=== PATIENT | female | born 1960 | race Caucasian/White ===

== ENCOUNTER 2023-03-10 06:17 | Day surgery (SDC) | payer MEDICARE, SELFPAY ==
[2023-03-10] MEDS: TETRACAINE 0.5% OPHTH 1 DROP EYE-RIGHT ×2 (06:55→07:00)
[2023-03-10 06:56] VITALS: BP 136/78; PULSE 49; RESP 16; TEMP 37; O2SAT 97
[2023-03-10 06:58] VITALS: BMI 27.1
[2023-03-10] MEDS: KETOROLAC OPHTH 0.5% 1 DROP EYE-RIGHT ×3 (07:00→07:15)
--- NOTE | 2023-03-10 07:07 | SUR.PREOP ---
The eye drops brought by the patient (Ketorolac and Prednisolone) are examined and I have determined they are labeled by the patient's pharmacy for this patient as prescribed by the surgeon. The bottles are intact, recently obtained and appear to be correct.
[2023-03-10] MEDS: SODIUM CHLORIDE 0.9 % (FLUSH) 10 ML SYRINGE IVF (07:10)
[2023-03-10] MEDS: TETRACAINE 0.5% OPHTH 2 DROP EYE-RIGHT (07:56)
[2023-03-10] MEDS: BALANCED SALT IRRIG SOLN 15 ML EYE-RIGHT (08:00)
--- NOTE | 2023-03-10 08:00 | W.ANESCHARGE ---
Anesthesia Charges Start Date/Time Anesthesia Start Date: 03/10/23 Anesthesia Start Time: 07:52 Stop Date/Time Anesthesia Stop Date: 03/10/23 Anesthesia Stop Time: 08:27
[2023-03-10 08:23] VITALS: BP 137/75; PULSE 49; RESP 16; TEMP 36.5; O2SAT 95
--- NOTE | 2023-03-10 09:22 | W.ANESCHARGE ---
Anesthesia Charges Start Date/Time Anesthesia Start Date: 03/10/23 Anesthesia Start Time: 07:52 Stop Date/Time Anesthesia Stop Date: 03/10/23 Anesthesia Stop Time: 08:27
--- NOTE | 2023-03-10 10:15 | P.OPTPRC_ITS ---
Procedure Note Date of procedure: 03/10/23 Will [facility] bill your pro fee for this procedure?: Yes Procedure Description: SURGEON: Joan Case MD PREOPERATIVE DIAGNOSIS: Nuclear sclerotic cataract, right eye. POSTOPERATIVE DIAGNOSIS: Nuclear sclerotic cataract, right eye. NAME OF OPERATION: Phacoemulsification of cataract with posterior chamber intraocular lens implantation in the right eye. ANESTHESIA: Topical. ESTIMATED BLOOD LOSS: Less than 2 cc. COMPLICATIONS: None. PATHOLOGY SPECIMEN: None. INDICATIONS: See consult note for details. The risks, benefits and alternatives of the procedure were explained to the patient, who elected to proceed and signed informed consent to do so. PROCEDURE: The patient was brought to the pre-holding area where the right eye was identified as the operative eye. I placed my initials above this eye. The patient received eye drops consisting of 0.5% tetracaine, 1% tropicamide, 10% phenylephrine, and 0.5% ketorolac. The patient was then brought to the operating room where the right eye was again identified as the operative eye. The eye was prepped with Betadine and draped in the usual sterile ophthalmic fashion. A #15 super-sharp blade was used to create a paracentesis site. 1% non-preserved intracameral lidocaine was injected into the anterior chamber. Endocoat was injected into the anterior chamber. A 2.4 mm keratome was used to create a three-plane self-sealing incision 1 mm anterior to the temporal limbus. A cystotome was used to create an anterior capsular leaflet. The Utrata forceps were used to extend this to form a continuous curvilinear capsulorrhexis. Hydrodissection was performed. The cataract was removed with phacoemulsification using the ofvtvk-[id number]-nbrriye technique. The irrigation and aspiration tip was used to remove the remaining cortex. Healon was injected into the capsular bag. An NEIL ZCB00 intraocular lens of 21.0 diopters was injected into the capsular bag. The irrigation and aspiration tip was used to remove the remaining viscoelastic. Balanced salt solution on a cannula was used to hydrate the wound, and the wound was found to be watertight. The pupil was noted to be round. DISPOSITION: The patient was taken to the recovery room and discharged to home in stable condition. The patient was instructed to call me or go to the emergency department with any sudden change, including dramatic loss of vision, severe pain in the eye or eyebrow region, nausea, or vomiting. The patient will follow up in the clinic tomorrow morning.
== END 2023-03-10 08:55 | disposition home or self-care (01) ==
LOC: OR 06:20
PROVIDERS: PCP Physician Assistant; Visit Provider Ophthalmology
PROC: (CPT 66984; principal; 2023-03-10 06:45)
DX: H25.11 Age-related nuclear cataract, right eye (principal)
CPT/HCPCS: 66984; 00142; A9270; J2250; J3010; V2632

== ENCOUNTER 2023-03-24 06:15 | Day surgery (SDC) | payer MEDICARE, SELFPAY ==
[2023-03-24] MEDS: TETRACAINE 0.5% OPHTH 1 DROP EYE-LEFT ×2 (06:59→07:04)
[2023-03-24] MEDS: KETOROLAC OPHTH 0.5% 1 DROP EYE-LEFT ×3 (07:02→07:34)
[2023-03-24] MEDS: SODIUM CHLORIDE 0.9 % (FLUSH) 10 ML SYRINGE IVF (07:30)
--- NOTE | 2023-03-24 07:30 | SUR.PREOP ---
Patient found to have irregular heart beat while taking vital signs. Patient placed on clinical research monitor. Patient denies abnormal rhythm, chest pain, or palpitations. Dr. Mathews with anesthesia notified. EKG VORB. Dr. Mathews in to see patient. EKG reviewed by Dr. Mathews and lin to proceed with procedure. Dr. Case notified.
[2023-03-24 07:42] VITALS: BMI 27.1
[2023-03-24 07:47] VITALS: BP 118/72; PULSE 47; RESP 16; TEMP 36.2; O2SAT 96
[2023-03-24] MEDS: TETRACAINE 0.5% OPHTH 2 DROP EYE-LEFT (07:53)
[2023-03-24] MEDS: BALANCED SALT IRRIG SOLN 15 ML EYE-LEFT (07:57)
--- NOTE | 2023-03-24 08:02 | W.ANESCHARGE ---
Anesthesia Charges Start Date/Time Anesthesia Start Date: 03/24/23 Anesthesia Start Time: 07:50 Stop Date/Time Anesthesia Stop Date: 03/24/23 Anesthesia Stop Time: 09:21
[2023-03-24 08:21] VITALS: BP 120/91; PULSE 60; RESP 16; TEMP 36.1; O2SAT 93
--- NOTE | 2023-03-24 08:23 | W.ANESCHARGE ---
Anesthesia Charges Start Date/Time Anesthesia Start Date: 03/24/23 Anesthesia Start Time: 07:50 Stop Date/Time Anesthesia Stop Date: 03/24/23 Anesthesia Stop Time: 08:21
--- NOTE | 2023-03-24 09:00 | W.PM.OPTPROC ---
Procedure Note Date of procedure: 03/24/23 Will [facility] bill your pro fee for this procedure?: Yes Procedure Description: SURGEON: Joan Case MD PREOPERATIVE DIAGNOSIS: Nuclear sclerotic cataract, left eye. POSTOPERATIVE DIAGNOSIS: Nuclear sclerotic cataract, left eye. NAME OF OPERATION: Phacoemulsification of cataract with posterior chamber intraocular lens implantation in the left eye. ANESTHESIA: Topical. ESTIMATED BLOOD LOSS: Less than 2 cc. COMPLICATIONS: None. PATHOLOGY SPECIMEN: None. INDICATIONS: See consult note for details. The risks, benefits and alternatives of the procedure were explained to the patient, who elected to proceed and signed informed consent to do so. PROCEDURE: The patient was brought to the pre-holding area where the left eye was identified as the operative eye. I placed my initials above this eye. The patient received eye drops consisting of 0.5% tetracaine, 1% tropicamide, 10% phenylephrine, and 0.5% ketorolac. The patient was then brought to the operating room where the left eye was again identified as the operative eye. The eye was prepped with Betadine and draped in the usual sterile ophthalmic fashion. A #15 super-sharp blade was used to create a paracentesis site. 1% non-preserved intracameral lidocaine was injected into the anterior chamber. Endocoat was injected into the anterior chamber. A 2.4 mm keratome was used to create a three-plane self-sealing incision 1 mm anterior to the temporal limbus. A cystotome was used to create an anterior capsular leaflet. The Utrata forceps were used to extend this to form a continuous curvilinear capsulorrhexis. Hydrodissection was performed. The cataract was removed with phacoemulsification using the umxojj-qwr-zwhduis technique. The irrigation and aspiration tip was used to remove the remaining cortex. Healon was injected into the capsular bag. An NEIL ZCB00 intraocular lens of 22.0 diopters was injected into the capsular bag. The irrigation and aspiration tip was used to remove the remaining viscoelastic. Balanced salt solution on a cannula was used to hydrate the wound, and the wound was found to be watertight. The pupil was noted to be round. DISPOSITION: The patient was taken to the recovery room and discharged to home in stable condition. The patient was instructed to call me or go to the emergency department with any sudden change, including dramatic loss of vision, severe pain in the eye or eyebrow region, nausea, or vomiting. The patient will follow up in the clinic tomorrow morning.
--- NOTE | 2023-03-24 10:54 | W.ANESCHARGE ---
Anesthesia Charges Start Date/Time Anesthesia Start Date: 03/24/23 Anesthesia Start Time: 07:50 Stop Date/Time Anesthesia Stop Date: 03/24/23 Anesthesia Stop Time: 08:21
== END 2023-03-24 08:46 | disposition home or self-care (01) ==
PROVIDERS: PCP Physician Assistant; Visit Provider Ophthalmology
PROC: (CPT 66984; principal; 2023-03-24 06:45)
DX: H25.12 Age-related nuclear cataract, left eye (principal)
CPT/HCPCS: 66984; 00142; 82962; A9270; J2250; J3010; V2632

== ENCOUNTER 2023-10-14 07:46 | Outpatient (CLI) | payer MEDICARE, SELFPAY | END 2023-10-14 07:47 | disposition home or self-care (01) | LOC: AMB 10-17 09:28 | PROVIDERS: PCP Physician Assistant; Visit Provider Family Medicine | DX: R41.82 Altered mental status, unspecified (principal); R42 Dizziness and giddiness | CPT/HCPCS: A0425; A0427 ==

== ENCOUNTER 2023-10-14 08:13 | Emergency (ER) | payer MEDICARE, SELFPAY ==
[2023-10-14] VITALS (9 sets, daily range): BP systolic 103–151; BP diastolic 58–91; PULSE 44–57; RESP 12–18; TEMP 36.4; O2SAT 93–98; BMI 28.2
--- NOTE | 2023-10-14 08:36 | ED_ITS ---
HPI - Dizziness General Date Seen: 10/14/23 Chief Complaint: Dizziness/Vertigo Stated Complaint: Dizziness Time Seen by Provider: 10/14/23 08:16 Source: patient and EMS Mode of arrival: EMS Limitations: no limitations History of Present Illness HPI Narrative: Patient is a 62-year-old female with a history of hypertension presenting to the emergency department for had episode of dizziness. She states she was on her normal plus wrote when she suddenly became very dizzy. She states the felt like she was moving on about. Is causing her to drop her eyes coughing and she called out to the business continuity specialist who then called EMS. When EMS arrived they gave her some nausea medicine she states she was starting to feel better after that. States he still some mild dizziness but not nearly as bad. Does notice it worsens with head movement. Never has had symptoms like this before. Denies lightheadedness, weakness, numbness, chest pain, shortness of breath, abdominal pain, headache, vision changes, diarrhea, constipation. States the symptoms came on suddenly. Related Data Home Medications ?Medication ?Instructions ?Recorded ?Confirmed atenolol 100 mg tablet 100 mg PO DAILY 03/08/23 10/14/23 buspirone 10 mg tablet 10 mg PO BID 03/08/23 03/24/23 fluoxetine 10 mg capsule 10 mg PO QAM 03/08/23 03/24/23 glipizide 10 mg tablet 10 mg PO DAILY 03/08/23 03/24/23 Allergies Allergy/AdvReac Type Severity Reaction Status Date / Time No Known Drug Allergies Allergy Verified 03/10/23 06:38 Review of Systems Status of ROS: Reports: 10 or more systems reviewed and unremarkable except as noted in History and below [facility] Medical History Attention deficit disorder without mention of hyperactivity ?F98.8 - Other specified behavioral and emotional disorders with onset usually occurring in childhood and adolescence (ICD-10) LOLIS (obstructive sleep apnea) ?G47.33 - Obstructive sleep apnea (adult) (pediatric) (ICD-10) Type 2 diabetes mellitus without complication, with long-term current use of insulin ?E11.9 - Type 2 diabetes mellitus without complications (ICD-10) ?Z79.4 - extermination supervisor (current) use of insulin (ICD-10) Anxiety ?F41.9 - Anxiety disorder, unspecified (ICD-10) Unspecified essential hypertension ?I10 - Essential (primary) hypertension (ICD-10) Social History Smoking Status: Never smoker How often do you have a drink containing alcohol: never AUDIT-C Alcohol total score: 0 Non-prescribed substance use: denies use Caffeine: Yes Exam Narrative: Exam Narrative: Const: Well-nourished, Well-developed, in mild distress Eyes: PERRL, no conjunctival injection, and symmetrical lids HENT: Atraumatic external nose and ears. Moist mucous membranes. Neck: Symmetric, trachea midline, No thyromegaly. CVS: RRR, No murmurs or gallops. Peripheral pulses 2+ and equal in all extremities RESP: Unlabored respiratory effort. Clear to auscultation bilaterally. GI: Nontender/Nondistended, No rebound or guarding. MSK:Extremities w/o deformity, Normal Active ROM Skin: Warm, Dry. No rashes or lesions. Neuro: Normal Muscle tone, Cranial nerves 2-12 grossly intact, normal [id number], normal [id number], normal gait, normal strength 5/5 upper lower extremities bilaterally, normal sensation upper and lower extremities bilaterally, normal rapid alternating movements. Head impulse test limited due to causing worsening dizziness and patient not tolerating it, no nystagmus seen, normal test of skew Psych: Awake, Alert, & Oriented x3. Appropriate mood and affect. Const: Vital Signs, click to edit/add: Vital Signs - 24 hr 10/14/23 08:19 10/14/23 08:31 10/14/23 09:01 Temperature 97.6 F Pulse Rate 54 L 49 L Pulse Rate [Left P ulse Oximeter] 57 L Respiratory Rate 18 14 16 Blood Pressure 140/91 H 117/69 Blood Pressure [Le ft Upper Arm] 151/89 H Pulse Oximetry 93 94 94 Oxygen Delivery Me thod Room Air 10/14/23 09:31 10/14/23 10:00 10/14/23 10:30 Temperature Pulse Rate 44 L 56 L 44 L Pulse Rate [Left P ulse Oximeter] Respiratory Rate 12 14 16 Blood Pressure 103/58 L 123/64 Blood Pressure [Le ft Upper Arm] Pulse Oximetry 96 98 98 Oxygen Delivery Me thod 10/14/23 11:02 10/14/23 11:34 Temperature Pulse Rate 46 L 51 L Pulse Rate [Left P ulse Oximeter] Respiratory Rate 16 12 Blood Pressure 133/72 132/75 Blood Pressure [Le ft Upper Arm] Pulse Oximetry 95 95 Oxygen Delivery Me thod Course Vital Signs Vital signs: Initial Vital Signs Temperature 97.6 F 10/14/23 08:19 Temperature Source Temporal Artery Scan 10/14/23 08:19 Pulse Rate 57 L 10/14/23 08:19 Pulse Rhythm Regular 10/14/23 08:19 Pulse Strength 3+ Normal 10/14/23 08:19 Respiratory Rate 18 10/14/23 08:19 Blood Pressure 151/89 H 10/14/23 08:19 Blood Pressure Mean 109 H 10/14/23 08:19 Blood Pressure Position Sitting 10/14/23 08:19 Pulse Oximetry 93 10/14/23 08:19 Oxygen Delivery Method Room Air 10/14/23 08:19 Vital Signs Temperature 97.6 F 10/14/23 08:19 Pulse Rate 57 L 10/14/23 08:19 Respiratory Rate 18 10/14/23 08:19 Blood Pressure 151/89 H 10/14/23 08:19 Pulse Oximetry 93 10/14/23 08:19 Oxygen Delivery Method Room Air 10/14/23 08:19 Temperature 97.6 F 10/14/23 08:19 Pulse Rate 51 L 10/14/23 11:34 Respiratory Rate 12 10/14/23 11:34 Blood Pressure 132/75 10/14/23 11:34 Pulse Oximetry 95 10/14/23 11:34 Oxygen Delivery Method Room Air 10/14/23 08:19 Medications Administered Medications: Discontinued Medications Generic Name Dose Route Start Last Admin Trade Name Freq PRN Reason Stop Dose Admin Lactated Ringer's 1,000 mls @ 1,000 mls/hr 10/14/23 08:30 10/14/23 10:00 Lactated Ringers 1000 Ml IV 10/14/23 09:29 Infused .Q1H ONE Infusion Meclizine HCl 25 mg 10/14/23 08:30 10/14/23 08:47 Meclizine Hcl 25 Mg Tablet PO 10/14/23 08:31 25 mg ONCE ONE Administration MDM - Dizziness MDM Narrative Medical decision making narrative: Patient is a 62-year-old female presenting to the emergency department for dizziness. Dizziness has improved significantly she states but is not completely gone. She does have worsening dizziness with head movement and the h and exam is reassuring. This makes me believe this is a peripheral issue rather than a central problem causing the dizziness. Do not believe imaging is necessary at this time. While she was having some difficulty explained the could be 0 slight syncopal episode related to this so an EKG and troponin were ordered. Also ordered a CBC, CMP, magnesium to look for signs of electrolyte abnormalities. She states she is feeling dehydrated so a L of lactated Ringer's was given and she is also given a dose of meclizine. Patient's lab work returned showing no concerning abnormalities. She is feeling much better after the meclizine and initial Zofran given by EMS. Her IV quit working and she was unable to finish her IV fluid it is. She only got a few 100 mL and it looks like. She did not want to be restocking and this seems reasonable as she is feeling better. Point of care troponin was elevated 0.05 considering this can be sometimes inaccurate we did do a lab troponin that was within normal limits. Repeat troponin was also done showing no changes. EKG shows no concerning abnormalities. Considering symptoms worsen with head movement and she the reassuring hints exam this is most likely peripheral cause of vertigo. Imaging is not necessary. I offered her to go home with vertigo were Zofran and she declined. Patient will be discharged at this time. Lab Data Labs: Lab Results 10/14/23 10/14/23 10/14/23 Range/Units 08:43 09:03 11:10 WBC 6.24 (4.50-11.00) K/uL RBC 5.21 H (4.00-5.20) m/uL Hgb 15.5 (12.0-16.0) gm/dL Hct 46.2 (33.0-51.0) % MCV 89 (80-100) fL MCH 30 (26-34) pg MCHC 34 (32-36) gm/dL RDW Coeff of [place] 11.4 L (11.5-15.5) % Plt Count 221 (140-440) K/uL Neut % (Auto) 52.7 (42.0-72.0) % Lymph % (Auto) 36.2 (20-44) % [place] % (Auto) 7.4 (0.0-11.0) % Eos % (Auto) 2.4 (0.0-7.0) % Baso % (Auto) 0.8 (0.0-3.0) % Neut # (Auto) 3.29 (1.7-7.0) K/uL Lymph # (Auto) 2.26 (0.90-2.90) K/uL [place] # (Auto) 0.50 (0.00-0.90) K/UL Eos # (Auto) 0.15 (0.00-0.50) K/uL Baso # (Auto) 0.05 (0.00-0.30) K/uL Abs Immat Gran (auto) 0.03 (0.00-0.30) K/uL Imm/Tot Granulo (auto) 0.5 % Sodium 138 (135-149) mmol/L Potassium 4.1 (3.6-5.1) mmol/L Chloride 101 (96-114) mmol/L Carbon Dioxide 31 (20-32) mmol/L Anion Gap 6 L (7-15) mEq/L BUN 20 (7-30) mg/dL Creatinine 0.7 (0.5-1.5) mg/dL Estimated Creat Clear 54.61 Estimated GFR 98 ml/min Glucose 220 H (60-115) mg/dL Calcium 9.0 (8.4-10.6) mg/dL Magnesium 2.2 (1.5-2.6) mg/dL Total Bilirubin 1.2 (0.1-1.5) mg/dL AST 30 (12-35) U/L ALT 27 (4-35) U/L Alkaline Phosphatase 75 (40-150) U/L Troponin I 0.02 0.02 (0.01-0.04) ng/mL Total Protein 7.8 (6.0-8.3) g/dL Albumin 4.6 (3.3-5.0) g/dL Lab Acknowledgement Test Added POC Troponin I 0.05 H (0.01-0.04) ng/ml ECG Data Attestation: I personally reviewed and interpreted this ECG as follows: Prior ECG tracings: available for review Interpretation: Sinus bradycardia rate 53 beats per minute, left axis deviation, no ST or T-wave abnormalities. Slightly widened QRS. Overall looks similar to previous EKG on file Discharge Plan Discharge Clinical Impression: Benign paroxysmal positional vertigo Patient Disposition: Home, Self-Care Condition: Improved Instructions: Benign Paroxysmal Positional Vertigo (DC) Additional Instructions: Follow-up with primary care provider the dizziness persists. Return to emergency department for new or worsening symptoms. Prescriptions: No Action atenolol 100 mg tablet 100 mg PO DAILY buspirone 10 mg tablet 10 mg PO BID fluoxetine 10 mg capsule 10 mg PO QAM glipizide 10 mg tablet 10 mg PO DAILY Follow Up/Referrals: Marilu Maher PA-C [Primary Care Provider] - Stand Alone Forms: [employer] Info Instructions
[2023-10-14] MEDS: LACTATED RINGERS 1000 ML 1,000 ML IV (08:47)
[2023-10-14] MEDS: MECLIZINE HCL 25 MG TABLET PO (08:47)
[2023-10-14 08:52] LABS: Basophils Absolute Auto 0.05 K/uL (0.00-0.30); Basophils Percent Auto 0.8 % (0.0-3.0); Eosinophils Absolute Auto 0.15 K/uL (0.00-0.50); Eosinophils Percent Auto 2.4 % (0.0-7.0); Hematocrit 46.2 % (33.0-51.0); Hemoglobin* 15.5 gm/dL (12.0-16.0); Immature Granulocytes Abs Auto 0.03 K/uL (0.00-0.30); Immature Granulocytes Pct Auto 0.5 %; Lymphocytes Absolute Auto 2.26 K/uL (0.90-2.90); Lymphocytes Percent Auto 36.2 % (20-44); Mean Corpuscular HGB Conc 34 gm/dL (32-36); Mean Corpuscular Hemoglobin 30 pg (26-34); Mean Corpuscular Volume 89 fL (80-100); Monocytes Percent Auto 7.4 % (0.0-11.0); Neutrophils Absolute Auto 3.29 K/uL (1.7-7.0); Neutrophils Percent Auto 52.7 % (42.0-72.0); Platelet Count* 221 K/uL (140-440); RDW Coefficient of Variation % 11.4 % (11.5-15.5); Red Blood Count 5.21 m/uL (4.00-5.20); White Blood Count* 6.24 K/uL (4.50-11.00)
[2023-10-14 08:53] LABS: Slide Review Reflex No
[2023-10-14 08:59] LABS: Troponin, Point-of-Care* 0.05 ng/ml (0.01-0.04)
[2023-10-14 09:09] LABS: Albumin* 4.6 g/dL (3.3-5.0); Chloride* 101 mmol/L (96-114)
[2023-10-14 09:10] LABS: Potassium* 4.1 mmol/L (3.6-5.1); Sodium* 138 mmol/L (135-149)
[2023-10-14 09:12] LABS: Anion Gap 6 mEq/L (7-15); Aspartate Amino Transferase* 30 U/L (12-35); Bilirubin Total* 1.2 mg/dL (0.1-1.5); Carbon Dioxide* 31 mmol/L (20-32); Creatinine* 0.7 mg/dL (0.5-1.5); Est. Creatinine Clearance* 54.61; Estimated Glomerular Filt Rate 98 ml/min
[2023-10-14 09:13] LABS: Alanine Aminotransferase* 27 U/L (4-35); Alkaline Phosphatase* 75 U/L (40-150); Blood Urea Nitrogen* 20 mg/dL (7-30); Glucose* 220 mg/dL (60-115); Magnesium* 2.2 mg/dL (1.5-2.6); Total Protein* 7.8 g/dL (6.0-8.3)
[2023-10-14 09:25] LABS: Troponin I* 0.02 ng/mL (0.01-0.04)
--- NOTE | 2023-10-14 10:29 | ED.NURSE ---
Assisted patient up to the bathroom. After returning to room, restarted fluids but IV is not flushing/infusing. Informed doctor. Patient declines another IV start and restarting of fluids. notified. IV removed.
[2023-10-14 11:47] LABS: Troponin I* 0.02 ng/mL (0.01-0.04)
== END 2023-10-14 12:13 | disposition home or self-care (01) ==
PROVIDERS: Emergency Provider Student in an Organized Health Care Education/Training Program; PCP Physician Assistant
DX: H81.13 Benign paroxysmal vertigo, bilateral (principal)
CPT/HCPCS: 36415; 80053; 83735; 84484; 85025; 93005; 99283; A9270; J7120